=== PATIENT | female | born 1985 | race Caucasian/White ===

== ENCOUNTER 2016-12-06 07:46 | Emergency (ER) | payer BC ==
[~2016-12-06] VITALS: Ht 175.3 cm; Wt 89.8 kg
--- NOTE | 2016-12-06 07:58 | NUR ---
PT [id number] FROM HOME: S/P WITNESSED SEIZURE. BS IN FIELD 98. A/A/O. PLACED ON MONITOR. VSS. AWAITING MD ORDER
[2016-12-06] MEDS ORDERED: LORAZEPAM INJ 2 MG/ML VIAL IVP ONE (08:00)
--- NOTE | 2016-12-06 08:00 | NUR ---
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
[2016-12-06] MEDS ORDERED: LORAZEPAM INJ 2 MG/ML VIAL ONE (08:01)
--- NOTE | 2016-12-06 08:10 | NUR ---
[facility] AT BEDSIDE COLLECTED BLOOD SAMPLE
[2016-12-06 08:11] LABS: BASOPHILS % (AUTO) 0.3 % (0.0-2.0); EOSINOPHILS # (AUTO) 0.1 /CMM (0.0-0.7); EOSINOPHILS % (AUTO) 1.2 % (0.0-6.0); HEMATOCRIT 39 % (33-45); HEMOGLOBIN 12.9 g/dL (11.5-14.8); LYMPHOCYTES # (AUTO) 1.5 /CMM (0.8-4.8); LYMPHOCYTES % (AUTO) 24.7 % (20.0-44.0); MEAN CORPUSCULAR HEMOGLOBIN 29 PG (26.0-33.0); MEAN CORPUSCULAR HGB CONC 33 g/dl (31.0-36.0); MEAN CORPUSCULAR VOLUME 86 fL (82-100); MONOCYTES # (AUTO) 0.4 /CMM (0.1-1.30); NEUTROPHILS # (AUTO) 4.1 /CMM (1.8-8.9); NEUTROPHILS % (AUTO) 67.8 % (43.0-81.0); PLATELET COUNT (AUTO) 194 /CMM (150-450); RDW COEFFICIENT OF VARIATION 12.4 (11.5-15.0)
--- NOTE | 2016-12-06 08:24 | NUR ---
URINE SAMPLE COLLECTED SENT TO LAB
[2016-12-06 08:25] LABS: CALCIUM, SERUM 9.1 mg/dL (8.5-10.1); CARBON DIOXIDE 25 mmol/L (21-32); CHLORIDE 106 mmol/L (98-107); CREATININE 0.8 mg/dL (0.6-1.3); GFR 83 mL/min (>60); GLUCOSE 141 mg/dL (74-106); POTASSIUM 3.6 mmol/L (3.5-5.1); SODIUM SERUM 141 mmol/L (136-145); UREA NITROGEN, BLOOD 13 mg/dL (7-18)
[2016-12-06 08:31] LABS: ALANINE AMINOTRANSFERASE 20 U/L (12-78); ALBUMIN 3.7 g/dL (3.4-5.0); ALCOHOL, BLOOD < 3 mg/dL (0-0); ALKALINE PHOSPHATASE 36 U/L (46-116); ASPARTATE AMINOTRANSFERASE 11 U/L (15-37); BILIRUBIN,TOTAL 0.2 mg/dL (0.2-1.0); TOTAL PROTEIN, SERUM 7.6 g/dL (6.4-8.2)
[2016-12-06 08:45] LABS: PHENCYCLIDINE SCREEN,URINE NEGATIVE (NEGATIVE)
[2016-12-06 08:47] LABS: CANNABINOID, URINE POSITIVE (NEGATIVE)
--- NOTE | 2016-12-06 09:13 | NUR ---
PT TAKEN TO CT VIA WC
[2016-12-06] MEDS ORDERED: LEVETIRACETAM (500MG) 500 MG in IV NS 0.9% 100 ML IV ONE (09:30)
[2016-12-06] MEDS ORDERED: IV SET PRIMARY PUMP SET 1 EA INFUS.SET MC ONE (09:41)
--- NOTE | 2016-12-06 10:01 | NUR ---
[facility] #20 IV ACCESS.
[2016-12-06 10:15] LABS: INR 0.97 (0.87-1.13); PROTHROMBIN TIME 10.4 SECS (9.5-12.7)
[2016-12-06 11:59] VITALS: BP 120/72
--- NOTE | 2016-12-06 12:05 | NUR ---
SALIMA TERRAZAS CALLED REGARDING TRANSPORT BED ASSIGNED FOR PT, ETA 20 TIL AVAILABLE. SALIMA GARY WILL INITIATE TRANSPORT WHEN BED IS READY.
--- NOTE | 2016-12-06 12:40 | NUR ---
DANIEL @ [facility] CALLED WITH ROOM #4585-B WILL CALL BACK TO GIVE ETA FOR PT TRANSPORT
--- NOTE | 2016-12-06 12:47 | NUR ---
ETA GIVEN BY SALIMA FOR PIT PICKUP: [id number]
--- NOTE | 2016-12-06 12:52 | NUR ---
[facility] . [phone] . AWAITING AMBULANCE FOR JOSE LUIS
--- NOTE | 2016-12-06 14:51 | NUR ---
[facility] PICKED UP PT [facility]. PAPERWORK AND IMAGES PROVIDED
== END 2016-12-06 14:52 | disposition short-term general hospital (02) ==
LOC: ER 07:48
DX: R56.9 Unspecified convulsions (principal)
CPT/HCPCS: 36415; 70450; 80048; 80076; 80305; 84703 ×2; 85025; 85730; 96365; 96375; 99291; A4606; G0480; J1953; J2060; J7030; Z7610